=== PATIENT | male | born 1970 | race African-American/Black ===

== ENCOUNTER 2020-08-20 16:28 | Inpatient (IN) | payer MEDICARE, MEDICAID ==
[~2020-08-20] VITALS: Ht 182.9 cm; Wt 104.5 kg
[2020-08-20] MEDS ORDERED: NS 1,000 ML IV ONE (16:45)
[2020-08-20] MEDS ORDERED: ATOR80TA59 PO (16:57)
[2020-08-20] MEDS ORDERED: LANTINJ4 SC (16:57)
[2020-08-20] MEDS ORDERED: COMBAER6 INH (16:57)
[2020-08-20] MEDS ORDERED: ASPI81CH33 PO (16:57)
[2020-08-20] MEDS ORDERED: AMLO1TAB25 PO (16:57)
[2020-08-20 17:18] LABS: BASO # 0.1 10^3/uL (0.0-0.2); BASO % 0.7 % (0.0-1.0); EOS # 0.1 10^3/uL (0.0-0.5); EOS % 1.5 % (0.0-3.0); HEMATOCRIT 44.5 % (42.0-52.0); HEMOGLOBIN 14.8 g/dl (13.5-17.5); LYMPH # 4.9 10^3/uL (1.5-5.0); LYMPH % 55.8 % (24.0-44.0); MEAN CORPUSCULAR HEMOGLOBIN 28.2 pg (27.0-33.0); MEAN CORPUSCULAR HGB CONC 33.3 g/dl (32.0-36.5); MEAN CORPUSCULAR VOLUME 84.9 fl (80.0-96.0); MONO # 0.6 10^3/uL (0.0-0.8); NEUTROPHILS # 3.1 10^3/uL (1.5-8.5); NEUTROPHILS % 34.8 % (36.0-66.0); PLATELET COUNT, AUTOMATED 261 10^3/uL (150-450); RED BLOOD COUNT 5.24 10^6/uL (4.30-6.10); WHITE BLOOD COUNT 8.8 10^3/uL (4.0-10.0)
[2020-08-20 17:49] LABS: ACETAMINOPHEN LEVEL < 2.0 UG/ML (10.0-30.0); ALBUMIN 3.7 GM/DL (3.2-5.2); ALT/SGPT 27 U/L (12-78); BILIRUBIN,DIRECT 0.2 MG/DL (0.0-0.2); BILIRUBIN,TOTAL 0.8 MG/DL (0.2-1.0); BLOOD UREA NITROGEN 17 MG/DL (7-18); CARBON DIOXIDE LEVEL 24 MEQ/L (21-32); CHLORIDE LEVEL 105 MEQ/L (98-107); CPK CREATINE PHOSPHOKINASE 639 U/L (39-308); CREATININE FOR GFR 1.58 MG/DL (0.70-1.30); ETHYL ALCOHOL (ETHANOL) 0.007 % (0.000-0.010); GLOMERULAR FILTRATION RATE 49.7 (>56); GLUCOSE, FASTING 115 MG/DL (70-100); POTASSIUM SERUM 4.1 MEQ/L (3.5-5.1); SALICYLATE LEVEL 2.7 MG/DL (5.0-30.0); SODIUM LEVEL 138 MEQ/L (136-145); THYROID STIMULATING HORMONE 0.341 uIU/ML (0.358-3.740); TOTAL PROTEIN 7.1 GM/DL (6.4-8.2); TROPONIN I 0.09 NG/ML (< 0.10)
[2020-08-20 18:29] LABS: AMPHETAMINES LEVEL URINE POSITIVE (NEGATIVE); BARBITURATES URINE NEGATIVE (NEGATIVE); BENZODIAZEPINES URINE NEGATIVE (NEGATIVE); CANNABINOIDS URINE NEGATIVE (NEGATIVE); COCAINE METABOLITE URINE POSITIVE (NEGATIVE); METHADONE URINE NEGATIVE (NEGATIVE); OPIATES URINE NEGATIVE (NEGATIVE); PHENCYCLIDINE URINE NEGATIVE (NEGATIVE)
[2020-08-20] MEDS ORDERED: MOM 30ML SUSPENSION UDC PO PRN (19:45)
[2020-08-20] MEDS ORDERED: MAALOX 30 ML SUSP *UDC PO PRN (19:45)
--- OUTSIDE RECORDS SUMMARY | 2020-08-20 19:59 | CCD ---
Author Author [facility] Address Unknown Phone Unavailable Support Name Relationship Address Phone UE Next Of Kin Unknown Unavailable Re-disclosure Warning The records that you are about to access may contain information from federally-assisted alcohol or drug abuse programs. If such information is present, then the following federally mandated warning applies: This information has been disclosed to you from records protected by federal confidentiality rules (42 CFR part 2). The federal rules prohibit you from making any further disclosure of this information unless further disclosure is expressly permitted by the written consent of the person to whom it pertains or as otherwise permitted by 42 CFR part 2. A general authorization for the release of medical or other information is NOT sufficient for this purpose. The Federal rules restrict any use of the information to criminally investigate or prosecute any alcohol or drug abuse patient.The records that you are about to access may contain highly sensitive health information, the redisclosure of which is protected by Article 27-F of the [facility] Public Health law. If you continue you may have access to information: Regarding HIV / AIDS; Provided by facilities licensed or operated by the [facility] Office of Mental Health; or Provided by the [facility] Office for People With Developmental Disabilities. If such information is present, then the following [facility] mandated warning applies: This information has been disclosed to you from confidential records which are protected by state law. State law prohibits you from making any further disclosure of this information without the specific written consent of the person to whom it pertains, or as otherwise permitted by law. Any unauthorized further disclosure in violation of state law may result in a fine or nursing home sentence or both. A general authorization for the release of medical or other information is NOT sufficient authorization for further disc losure. Insurance Providers Payer name Policy type / Coverage type Policy ID Covered libertarian ID Covered libertarian's relationship to franz Policy Franz Plan Information [facility] [id number]
[2020-08-21] MEDS: ACETAMINOPHEN TAB 650MG DOSE (2X325MG) PO PRN ×2 (01:57→21:05)
[2020-08-21] MEDS: traZODone 50 MG TAB PO PRN (02:00)
[2020-08-21 06:56] VITALS: BP_SYST 176; BP_SYST 186; BP_DIAS 84
[2020-08-21] MEDS ORDERED: OMEGCAP4 PO (09:54)
[2020-08-21] MEDS ORDERED: SYMB16INH INH (09:54)
[2020-08-21] MEDS ORDERED: D31000TA2 PO (09:54)
[2020-08-21] MEDS ORDERED: COMMENTS (09:55)
--- NOTE | 2020-08-21 09:58 | MHHPEPDOC ---
General Date Of Admission: Aug 21, 2020 Legal Status: 9.39 Chief Complaint "Hearing voices, suicidal thoughts, alcohol and drugs " History of Present Illness HISTORY OF THE PRESENT ILLNESS: Patient is a 49 -year-old , male, who states he is hearing voices, having suicidal thoughts using alcohol and drugs. He states he has been having these symptoms for 4-5 days. He rents a room, which is part of an apartment and has been in [place] for approximately 3 weeks. He has no psychiatric history here because he has never been in [place] and as mentioned, he has been in [place], 2-3 weeks prior to that he was in [place] and states she had no psychiatric care there. He does recall that he has had psychiatric care at some point, but he has no memory of his last visit. He has had several hospitalizations. He does not recall when the last one was. He was born in [place], and states unfortunately, "unfortunately he has family there." He has a grandmother and cousins in [place]. 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 He states pr esently "there is no person in the world requiring my presence and no place for me to be." He has been and twice and he has 2 children from his first , but he doesn't know where they are. He has no present legal difficulties but has previously been arrested for disorderly conduct. His alcohol use has been in and he states that some first time he's been drinking in 30 years, but he has also used methamphetamines and crack. He states this is his first time using methamphetamine, but he is been using crack off and on since 1995. He states he is hearing voices modeled though they are, and numbering 3. He states they are talking and berating him. He states he has been depressed since Sunday of this week. He states he is made over 15 suicide attempts using different methods of overdose and insulin. He is self educated but also has an associates degree. He states he has been treated for depression using Zoloft and Depakote did not like the Depakote because he stopped the elevated moods. He states he has never had manic episodes or over elevated moods. He states he is not presently paranoid, but he is having auditory hallucinations and suicidal ideas. He is fully oriented. He has had difficulty sleeping. His appetite is good. Psychiatric Review of Systems Depression (2 or more weeks): depressed mood, insomnia/hypersomnia, feelings of worthlesness, suicidal thoughts Farzana (4 or more days of): denies Psychosis: auditory hallucination PTSD: denies Anxiety: denies Past Psychiatric History Previous Psychiatric Diagnosis: He does not have a documented diagnosis and does not recall treatment except for use of Zoloft and Depakote. Previous Psychiatric Admissions:. He has had psychiatric admissions but does not recall the last one. Suicide Attempts:. He states he is made over 15 suicide attempts. Psychiatric Follow-up:. He does not recall or discuss any psychiatric follow-up. Psychiatric medications:. In the past. He recalls Zoloft and Depakote. Past Medical History Medical Problems He describes no medical problems Head Injury: No Seizures: No Hospitalizations: Yes Surgeries: No Family Medical/Psychiatric HX Psychiatric Disorders: Yes Addiction: Yes Suicide Attemps/Completions: Yes Addiction History alcohol, cocaine, methamphetamines Social History Childhood: Abuse/Trauma:. Current Living Situation: Presently living in an apartment in [place]. Education: Associates degree. Employment:. Numerous businesses. Social Support: None noted. Legal:. History of disorderly conduct. Marital:. 2 marriages with 2 children from first marriage. Mental Status Examination General Appearance: well groomed Build: average Demeanor: average Eye Contact: avoidant Activity: average Behavior: cooperative Speech: clear Mood: euthymic Mood Sad Affect: flat Thought Process: logical/linear Thought Content (Delusions): none reported Thought Content (Aggressive): none reported Perception (Hallucinations): auditory Perception (Other): none reported Cognition (Impairment of): none reported Cognition(Intelligence Est.): above average Oriented: Oriented times three Insight: good Judgment: Poor Psychosis: Denies Diagnoses Major depressive illness, chronic substance abuse A-FIB/CHADSVASC A-FIB History Current/History of A-Fib/PAF?: No Current PO Anticoag Therapy: No Age/Risk Factor Scoring CHADSVASC: CHADSVASC Response (Comments) Value Age Risk Factor Age < 65 years old 0 Total 0 Treatment Treatment ordered: NONE Initial Treatment Plan 1. Patient was admitted on a [9.39] status. 2. Complete history was obtained. 3. With patients permission, family will be contacted and database will be expanded. 4. Patients medication regimen will be reviewed and changed accordingly. 5. Patient will be provided with protected environment. 6. Patient will be treated with individual, group, and milieu therapies. 7. Patient will receive supportive psych-education. 8. Discharge planning will commence immediately. 9. Outpatient follow-up treatment will be strongly recommended. 10. The initial treatment plan will focus initially on: * Depression. * Risk for suicide. ESTIMATED LENGTH OF STAY: - DAYS. TIME SPENT COUNSELING AND COORDINATING INITIAL CARE: minutes. Vital Signs Vital Signs Date Time Temp Pulse Resp B/P (MAP) Pulse Ox O2 Delivery O2 Flow Rate FiO2 08/21/20 06:56 97.2 88 18 186/84 (118) 96 Room Air Laboratory Data 24H Labs Laboratory Tests 2 08/20/20 16:47: Immature Granulocyte % (Auto) 0.2, Neutrophils (%) (Auto) 34.8L, Lymphocytes (%) (Auto) 55.8H, Monocytes (%) (Auto) 7.0, Eosinophils (%) (Auto) 1.5, Basophils (%) (Auto) 0.7, Neutrophils # (Auto) 3.1, Lymphocytes # (Auto) 4.9, Monocytes # (Auto) 0.6, Eosinophils # (Auto) 0.1, Basophils # (Auto) 0.1, Nucleated Red Blood Cells % (auto) 0.0, Anion Gap 9, Glomerular Filtration Rate 49.7L, Calcium Level 9.0, Total Bilirubin 0.8, Direct Bilirubin 0.2, Aspartate Amino Transf (AST/SGOT) 20, Alanine Aminotransferase (ALT/SGPT) 27, Alkaline Phosphatase 80, Total Creatine Kinase 639H, Troponin I 0.09, Total Protein 7.1, Albumin 3.7, Albumin/Globulin Ratio 1.1, Thyroid Stimulating Hormone (TSH) 0.341L, Sali cylates Level 2.7L, Urine Opiates Screen NEGATIVE, Urine Methadone Screen NEGATIVE, Acetaminophen Level < 2.0L, Urine Barbiturates Screen NEGATIVE, Urine Phencyclidine Screen NEGATIVE, Urine Amphetamines Screen POSITIVEH, Urine Benzodiazepines Screen NEGATIVE, Urine Cocaine Metabolite Screen POSITIVEH, Urine Cannabinoids Screen NEGATIVE, Ethyl Alcohol Level 0.007 CBC/BMP Laboratory Tests 08/20/20 16:47 Medications Scheduled Amlodipine Besylate (Amlodipine Besylate) 10 Mg Tablet, 10 MG PO DAILY, (Reported) Aspirin (Aspirin) 81 Mg Tab.chew, 81 MG PO DAILY for pain, (Reported) Atorvastatin Calcium (Atorvastatin Calcium) 80 Mg Tablet, 80 MG PO DAILY, (Reported) Insulin Glargine,Hum.rec.anlog (Lantus Solostar) 100 Unit/1 Ml Insuln.pen, 10 UNIT SC QPM, (Reported) Ipratropium/Albuterol Sulfate (Combivent Respimat 20-100 Mcg) 4 Gm Mist.inhal, 2 PUFF INH TID, (Reported) Allergies Coded Allergies: lisinopril (Verified Allergy, Unknown, Tongue swelling, 08/20/20) prochlorperazine (Verified Allergy, Unknown, tongue swelling, 08/20/20) BRENDA LIRA MD Aug 21, 2020 09:58
[2020-08-21] MEDS ORDERED: COMBIVENT RESPIMAT 100-20MCG INHALER 4GM INH PRN (14:15)
[2020-08-21] MEDS ORDERED: GLUCOSE 4GM CHEW TABLET PO PRN (14:15)
[2020-08-21] MEDS ORDERED: DEXTROSE 50% 50 ML SYRINGE IV PRN (14:15)
[2020-08-21] MEDS ORDERED: GLUCAGON INJ 1MG VIAL SC PRN (14:15)
--- NOTE | 2020-08-21 14:18 | HPEPDOC ---
General Date of Admission Aug 20, 2020 at 19:34 Date of Service: Aug 21, 2020 Chief Complaint The patient is a 49-year-old male admitted with a reason for visit of Schizophrenia. Source: Patient Exam Limitations: No limitations History of Present Illness Pt is 49 yo M with PMH of type 2 diabetes, Anxiety, Depression, chronic kidney diseases, hypertension, hyperlipidemia presented to the hospital with hearing voices, having suicidal thoughts using alcohol and drugs. He states he has been having these symptoms for 4-5 days. Patient denies fever, chills, nausea, chest pain, shortness of breath, diarrhea or dysuria Home Medications Scheduled Amlodipine Besylate (Amlodipine Besylate) 10 Mg Tablet, 5 MG PO DAILY for ., (Reported) Aspirin (Aspirin) 81 Mg Tab.chew, 81 MG PO DAILY for ., (Reported) Atorvastatin Calcium (Atorvastatin Calcium) 80 Mg Tablet, 80 MG PO DAILY for ., (Reported) Budesonide/Formoterol (Symbicort 160-4.5 Mcg Inhaler) 6 Gm Hfa.aer.ad, 2 PUFF INH BID for ., (Reported) Cholecalciferol (Vitamin D3) (Vitamin D3) 1,000 Unit Tablet, 1,000 UNITS PO DAILY for ., (Reported) Insulin Glargine,Hum.rec.anlog (Lantus Solostar) 100 Unit/1 Ml Insuln.pen, 20 UNIT SC QPM for ., (Reported) Kelso-3/Dha/Epa/Fish Oil (Kelso-3 Fish Oil 1,000 mg Sfgl) 1,000 Mg Capsule, 2,000 MG PO BID for ., (Reported) Scheduled PRN Ipratropium/Albuterol Sulfate (Combivent Respimat 20-100 Mcg) 4 Gm Mist.inhal, 1 PUFF INH QID PRN for SHORTNESS OF BREATH, (Reported) Miscellaneous Medications [Comments] , for ., (Reported) MED LIST PROVIDED BY [facility] Allergies Coded Allergies: lisinopril (Verified Allergy, Unknown, Tongue swelling, 08/20/20) prochlorperazine (Verified Allergy, Unknown, tongue swelling, 08/20/20) Past Medical History Medical History type 2 diabetes, Anxiety, Depression, chronic kidney diseases, hypertension, hyperlipidemia, COPD, Nephrotic syndrome Family History Mother from colon cancer and uterine cancer Social History * Smoker: current smoker Alcohol: heavy Drugs: IV drug use A-FIB/CHADSVASC A-FIB History Current/History of A-Fib/PAF?: No Current PO Anticoag Therapy: No Review of Systems Constitutional: Denies: Chills Eyes: Denies: Pain ENT: Denies: Head Aches Skin: Denies: Rash Pulmonary: Denies: Dyspnea Cardiovascular: Denies: Chest Pain, Palpitations Gastrointestinal: Denies: Nausea Genitourinary: Denies: Dysuria Hematologic: Denies: Bruising Endocrine: Denies: Polydipsia, Polyphagia Musculoskeletal: Denies: Neck Pain Neurological: Denies: Weakness Psych: Reports: Anxiety, Depression Physical Examination General Exam: Positive: Alert, Cooperative Eye Exam: Positive: PERRLA ENT Exam: Positive: Atraumatic Neck Exam: Positive: Supple; Negative: JVD Chest Exam: Positive: Clear to auscultation Heart Exam: Positive: Rate Normal Telemetry: Positive: No significant arrhythmia Abdomen Exam: Positive: Normal bowel sounds Extremity Exam: Negative: Clubbing, Cyanosis Skin Exam: Positive: Nl turgor and temperature Neuro Exam: Positive: Strength at 5/5 X4 ext Psych Exam: Positive: Anxiety Vital Signs Vital Signs Date Time Temp Pulse Resp B/P (MAP) Pulse Ox O2 Delivery O2 Flow Rate FiO2 08/21/20 06:56 97.2 88 18 186/84 (118) 96 Room Air Laboratory Data Labs 24H Laboratory Tests 2 08/20/20 16:47: Immature Granulocyte % (Auto) 0.2, Neutrophils (%) (Auto) 34.8L, Lymphocytes (%) (Auto) 55.8H, Monocytes (%) (Auto) 7.0, Eosinophils (%) (Auto) 1.5, Basophils (%) (Auto) 0.7, Neutrophils # (Auto) 3.1, Lymphocytes # (Auto) 4.9, Monocytes # (Auto) 0.6, Eosinophils # (Auto) 0.1, Basophils # (Auto) 0.1, Nucleated Red Blood Cells % (auto) 0.0, Anion Gap 9, Glomerular Filtration Rate 49.7L, Calcium Level 9.0, Total Bilirubin 0.8, Direct Bilirubin 0.2, Aspartate Amino Transf (AST/SGOT) 20, Alanine Aminotransferase (ALT/SGPT) 27, Alkaline Phosphatase 80, Total Creatine Kinase 639H, Troponin I 0.09, Total Protein 7.1, Albumin 3.7, Albumin/Globulin Ratio 1.1, Thyroid Stimulating Hormone (TSH) 0.341L, Salicylate s Level 2.7L, Urine Opiates Screen NEGATIVE, Urine Methadone Screen NEGATIVE, Acetaminophen Level < 2.0L, Urine Barbiturates Screen NEGATIVE, Urine Phencyclidine Screen NEGATIVE, Urine Amphetamines Screen POSITIVEH, Urine Benzodiazepines Screen NEGATIVE, Urine Cocaine Metabolite Screen POSITIVEH, Ur ine Cannabinoids Screen NEGATIVE, Ethyl Alcohol Level 0.007 CBC/BMP Laboratory Tests 08/20/20 16:47 Microbiology Microbiology 08/20/20 Respiratory Virus Panel (PCR) (SALOMON) - Final, Complete Assessment/Plan Pt is 49 yo M with PMH of type 2 diabetes, Anxiety, Depression, chronic kidney diseases, hypertension, hyperlipidemia presented to the hospital with hearing voices, having suicidal thoughts using alcohol and drugs. He states he has been having these symptoms for 4-5 days. Patient denies fever, chills, nausea, chest pain, shortness of breath, diarrhea or dysuria Problems (1) Schizophrenia Status: Acute Problem Text: defer treatment to psych team (2) Diabetes mellitus Status: Chronic Problem Text: Insulin sliding scale Detemir twice a day Diabetes diet (3) Hyperlipidemia Status: Chronic Problem Text: Continue statin (4) Hypertension Status: Chronic Problem Text: I added lisinopril to his regimen Patient has diabetes and he will benefit from ARB inhibitors (5) COPD (chronic obstructive pulmonary disease) Status: Chronic Problem Text: Not in acute exacerbation Continue inhalers Plan / VTE VTE Prophylaxis Ordered?: No VTE Exclusion Mechanical Proph: Low Risk for VTE KD DEL CID DO Aug 21, 2020 14:17
[2020-08-21] MEDS: ATORVASTATIN 20 MG TAB PO SCH (14:48)
[2020-08-21] MEDS: VITAMIN D 1,000 INTERNATIONAL UNITS TABLET PO SCH (14:48)
[2020-08-21] MEDS: amLODIPine 5 MG TAB PO SCH (14:48)
[2020-08-21] MEDS: ASPIRIN 81 MG CHEW TABLET PO SCH (14:49)
[2020-08-21] MEDS: hydrOXYzine 50 MG TAB PO SCH ×2 (15:27→21:01)
[2020-08-21] MEDS: LOSARTAN 25 MG TAB PO SCH (15:58)
[2020-08-21 16:15] VITALS: BP 140/88
[2020-08-21] MEDS: HumaLOG INSULIN (NovoLOG) PER UNIT SC SCH ×2 (17:08→21:00)
--- NOTE | 2020-08-21 20:46 | ECGEPIP ---
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
[2020-08-21] MEDS: SYMBICORT 160/4.5MCG INHALER 6GM INH SCH (21:00)
[2020-08-21] MEDS: LEVEMIR (INSULIN DETEMIR) 1 UNITS/0.01ML SC SCH (21:01)
[2020-08-22 06:28] VITALS: BP 148/98
[2020-08-22] MEDS: HumaLOG INSULIN (NovoLOG) PER UNIT SC SCH ×4 (07:03→20:58)
[2020-08-22] MEDS ORDERED: OLANZapine 2.5MG TABLET PO SCH (09:00)
[2020-08-22] MEDS: ASPIRIN 81 MG CHEW TABLET PO SCH (09:24)
[2020-08-22] MEDS: SYMBICORT 160/4.5MCG INHALER 6GM INH SCH ×2 (09:26→20:50)
[2020-08-22] MEDS: LEVEMIR (INSULIN DETEMIR) 1 UNITS/0.01ML SC SCH ×2 (09:27→20:50)
[2020-08-22] MEDS: LOSARTAN 25 MG TAB PO SCH (09:28)
[2020-08-22] MEDS: ATORVASTATIN 20 MG TAB PO SCH (09:28)
[2020-08-22] MEDS: hydrOXYzine 50 MG TAB PO SCH ×3 (09:28→20:50)
[2020-08-22] MEDS: VITAMIN D 1,000 INTERNATIONAL UNITS TABLET PO SCH (09:28)
[2020-08-22] MEDS: amLODIPine 5 MG TAB PO SCH (09:29)
--- NOTE | 2020-08-22 15:18 | MHIPNPDOC ---
[facility] Progress Note Progress Note DATE OF SERVICE: 08/22/20 HISTORY: 49-year-old male initially did not want to be seen today, but now complains of hearing voices and requests medication. VITAL SIGNS: See below. NEW TEST RESULTS: None. CURRENT MEDICATIONS: See below. MENTAL STATUS EXAMINATION: Patient is a 49-year old male, who is, complaining of auditory hallucinations. Speech: Is, normal. Language skills are. Normal. Thought processes including: Persecutory with auditory hallucinations. Thought content: As above. Abstract reasoning, and computation: Able to abstract. Description of associations:. No looseness associations. Description of abnormal or psychotic thoughts:, Hearing voices and persecutory thoughts. Judgment: Fair. Insight: Fair. Orientation: 3. Recent and remote memory: Intact. Attention span and concentration: Intact. Language: Normal. Fund of knowledge: Full. Mood: Anxious. Affect:, Congruent. DIAGNOSES: 1. 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 2. None. 3.. None. ASSESSMENT: As above MANAGEMENT PLAN:, We'll begin on low dose Zyprexa. TIME SPENT: 30 minutes. Vital Signs Vital Signs Date Time Temp Pulse Resp B/P (MAP) Pulse Ox O2 Delivery O2 Flow Rate FiO2 08/22/20 09:29 87 08/22/20 09:28 142/96 08/22/20 06:28 97.5 18 98 Room Air Laboratory Data 24H Labs Laboratory Tests 2 08/21/20 17:06: Bedside Glucose (Misc Panel) 131H 08/21/20 21:00: Bedside Glucose (Misc Panel) 155H 08/22/20 06:27: Bedside Glucose (Misc Panel) 149H 08/22/20 11:51: Bedside Glucose (Misc Panel) 199H Current Medications Current Medications Medications (Trade) Dose Ordered Sig/Dimitry Route PRN Reason Start Time Stop Time Status Last Admin Dose Admin Acetaminophen (Tylenol Tab) 650 mg Q6HP PRN PO HEADACHE or DISCOMFORT 08/20/20 19:45 08/21/20 21:05 Al Hydrox/Mg Hydrox/Simethicone (Mylanta) 30 ml Q4HP PRN PO HEARTBURN/INDIGESTION 08/20/20 19:45 Albuterol/ Ipratropium (Combivent Respimat 100-20mcg) 1 puff QID PRN INH SHORTNESS OF BREATH 08/21/20 14:15 08/22/20 01:23 Amlodipine Besylate (Norvasc) 5 mg DAILY PO 08/21/20 09:00 08/22/20 09:29 Aspirin (Aspirin Chewable) 81 mg DAILY PO 08/21/20 09:00 08/22/20 09:24 Atorvastatin Calcium (Lipitor) 80 mg DAILY PO 08/21/20 09:00 08/22/20 09:28 Budesonide/ Formoterol Fumarate (Symbicort 160/ 4.5mcg) 2 puff BID INH 08/21/20 21:00 08/22/20 09:26 Dextrose (Dextrose 50%) 25 ml ASDIRECTED PRN IV SEE LABEL COMMENTS 08/21/20 14:15 Glucagon (Glucagon) 1 mg ASDIRECTED PRN SC SEE LABEL COMMENTS 08/21/20 14:15 Glucose (Glucose) 16 GM ASDIRECTED PRN PO SEE LABEL COMMENTS 08/21/20 14:15 Home Med (Med Rec Complete!) ASDIRECTED XX 08/21/20 10:00 08/21/20 10:12 DC Hydroxyzine HCl (Atarax) 50 mg TID PO 08/21/20 16:00 08/22/20 09:28 Insulin Detemir (Levemir Insulin) 10 units BID SC 08/21/20 21:00 08/22/20 09:27 Insulin Human Lispro (HumaLOG INSULIN) SEE PROTOCOL TABLE AC SC 08/21/20 17:30 08/22/20 07:03 Insulin Human Lispro (HumaLOG INSULIN) SEE PROTOCOL TABLE QHS SC 08/21/20 21:00 Lisinopril (Prinivil) 20 mg DAILY PO 08/22/20 09:00 08/21/20 14:25 DC Losartan Potassium (Cozaar) 25 mg DAILY PO 08/21/20 09:00 08/22/20 09:28 Magnesium Hydroxide (Milk Of Magnesia) 30 ml DAILYPRN PRN PO CONSTIPATION 08/20/20 19:45 Trazodone HCl (Desyrel) 50 mg QHSP PRN PO INSOMNIA 08/20/20 19:45 08/21/20 02:00 Vitamin D (Vitamin D) 1,000 units DAILY PO 08/21/20 09:00 08/22/20 09:28 Allergies Coded Allergies: lisinopril (Verified Allergy, Unknown, Tongue swelling, 08/20/20) prochlorperazine (Verified Allergy, Unknown, tongue swelling, 08/20/20) BRENDA LIRA MD Aug 22, 2020 15:18
[2020-08-22 16:21] VITALS: BP 121/65
[2020-08-22] MEDS: traZODone 50 MG TAB PO PRN (20:50)
[2020-08-23 07:14] VITALS: BP 127/77
[2020-08-23] MEDS: HumaLOG INSULIN (NovoLOG) PER UNIT SC SCH ×4 (07:30→20:42)
[2020-08-23] MEDS: OLANZapine 5 MG TAB PO SCH ×2 (09:00→21:00)
[2020-08-23] MEDS: SYMBICORT 160/4.5MCG INHALER 6GM INH SCH ×2 (09:56→19:54)
[2020-08-23] MEDS: LOSARTAN 25 MG TAB PO SCH (09:57)
[2020-08-23] MEDS: ATORVASTATIN 20 MG TAB PO SCH (09:57)
[2020-08-23 09:58] VITALS: BP 127/77
[2020-08-23] MEDS: ASPIRIN 81 MG CHEW TABLET PO SCH (09:58)
[2020-08-23] MEDS: VITAMIN D 1,000 INTERNATIONAL UNITS TABLET PO SCH (09:58)
[2020-08-23] MEDS: amLODIPine 5 MG TAB PO SCH (09:58)
[2020-08-23] MEDS: hydrOXYzine 50 MG TAB PO SCH ×3 (09:58→19:54)
[2020-08-23] MEDS: LEVEMIR (INSULIN DETEMIR) 1 UNITS/0.01ML SC SCH ×2 (10:01→21:06)
--- NOTE | 2020-08-23 14:54 | MHIPNPDOC ---
[facility] Progress Note Progress Note DATE OF SERVICE: 08/23/20 HISTORY: Patient is a 49 -year-old , male, who states he is hearing voices, having suicidal thoughts using alcohol and drugs. He states he has been having these symptoms for 4-5 days. He rents a room, which is part of an apartment and has been in [place] for approximately 3 weeks. He has no psychiatric history here because he has never been in [place] and as mentioned, he has been in [place], 2-3 weeks prior to that he was in [place] and states she had no psychiatric care there. He does recall that he has had psychiatric care at some point, but he has no memory of his last visit. He has had several hospitalizations. He does not recall when the last one was. He was born in [place], and states unfortunately, "unfortunately he has family there." He has a grandmother and cousins in [place]. 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 He states presently "there is no person in the world requiring my presence and no place for me to be." He has been and twice and he has 2 children from his first , but he doesn't know where they are. He has no present legal difficulties but has previously been arrested for disorderly conduct. His alcohol use has been in and he states that some first time he's been drinking in 30 years, but he has also used methamphetamines and crack. He states this is his first time using methamphetamine, but he is been using crack off and on since 1995. He states he is hearing voices modeled though they are, and numbering 3. He states they are talking and berating him. He states he has been depressed since Sunday of this week. He states he is made over 15 suicide attempts using different methods of overdose and insulin. He is self educated but also has an associates degree. VITAL SIGNS: See below. CURRENT MEDICATIONS: See below. MENTAL STATUS EXAMINATION:Patient is a 49 -year-old , male, who states he is hearing voices, having suicidal thoughts using alcohol and drugs. He states he has been having these symptoms for 4-5 days. He rents a room, which is part of an apartment and has been in [place] for approximately 3 weeks. He has no psychiatric history here because he has never been in [place] and as mentioned, he has been in [place]. Speech: Is normal rate, tone and volume Language skills are intact Thought processes including: linear and goal oriented Thought content: reports depression and suicidal, has some vague planning. Abstract reasoning, and computation: fair Description of associations: reports auditory hallucinations Description of abnormal or psychotic thoughts: appears paranoid, refusing to answer question about how he came to [place], will not clarify Judgment: impaired Insight: Impaired Orientation: alert and oriented to person, place, time and situation Recent and remote memory: intact Attention span and concentration: fair Language: expansive Fund of knowledge: average Mood: Depressed and irritable mood Affect: Flat, strong agitation DIAGNOSES: Major Depressive Disorder, Recurrent, Recurrent, Polysubstance Use Disorder Rule out Bipolar Disorder Rule out Cluster B Personality Traits (Antisocial Personality Disorder) ASSESSMENT: Patient was awaken for the interview. He is alert and oriented, has a depressed mood and affect. He is moderately irritable and agitated with this senior writer when asked what brought him to [place]. He answered "its the luck of the draw." When asked again if he had taken a bus or drove himself to a place where he has never lived he states "do you not understand what luck of the draw means?" When asked to clarify that statement he states "are you trying to get me upset with this question? I answered you. I said "it's the luck of the draw." This senior writer clarified whether he had been riding on a bus, decided to get off the bus and was not really wanting to be in [place] vs wanting a fresh start in a new town. Patient becomes even more agitated and postulates that this senior writer is trying to illicit more from the question to upset him. I offer to the patient that I believe that he is feeling unsafe but only want to clarify his future outpatient needs if whether he is staying in [place] vs he is transient and not planning on staying. Patient is becoming very agitated, becomes aggressive in his posture and I quickly closed the session as he was not engaging and began to become more paranoid in the session. Patient is quite labile in mood during the interview. He appears to have some Cluster B Personality Traits (antisocial traits). 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 He reports no work history. Was quite defensive when this senior writer attempts to piece more of his psychiatric history. He appears to have no goals, no work history, no recollection of his past or avoids answering them. He became very defensive when asked about the circumstances that brought him to a town in which he as never lived. He did report no current relationships. Spoke with Primary RN, Tami who gave additional information in that Patient had reported to her that he had been diagnosed with Malingering in the past. MANAGEMENT PLAN: Continue on medications, increase Zyprexa to 5 mg BID. Patient reported to RN that he feels racy on this medication. patient not stable for discharge TIME SPENT: 25 minutes. Vital Signs Vital Signs Date Time Temp Pulse Resp B/P (MAP) Pulse Ox O2 Delivery O2 Flow Rate FiO2 08/23/20 09:58 79 127/77 08/23/20 07:14 97.6 14 96 Room Air Laboratory Data 24H Labs Laboratory Tests 2 08/22/20 20:54: Bedside Glucose (Misc Panel) 175H 08/23/20 12:01: Bedside Glucose (Misc Panel) 142H Current Medications Current Medications Medications (Trade) Dose Ordered Sig/Dimitry Route PRN Reason Start Time Stop Time Status Last Admin Dose Admin Acetaminophen (Tylenol Tab) 650 mg Q6HP PRN PO HEADACHE or DISCOMFORT 08/20/20 19:45 08/21/20 21:05 Al Hydrox/Mg Hydrox/Simethicone (Mylanta) 30 ml Q4HP PRN PO HEARTBURN/INDIGESTION 08/20/20 19:45 Albuterol/ Ipratropium (Combivent Respimat 100-20mcg) 1 puff QID PRN INH SHORTNESS OF BREATH 08/21/20 14:15 08/22/20 01:23 Amlodipine Besylate (Norvasc) 5 mg DAILY PO 08/21/20 09:00 08/23/20 09:58 Aspirin (Aspirin Chewable) 81 mg DAILY PO 08/21/20 09:00 08/23/20 09:58 Atorvastatin Calcium (Lipitor) 80 mg DAILY PO 08/21/20 09:00 08/23/20 09:57 Budesonide/ Formoterol Fumarate (Symbicort 160/ 4.5mcg) 2 puff BID INH 08/21/20 21:00 08/23/20 09:56 Dextrose (Dextrose 50%) 25 ml ASDIRECTED PRN IV SEE LABEL COMMENTS 08/21/20 14:15 Glucagon (Glucagon) 1 mg ASDIRECTED PRN SC SEE LABEL COMMENTS 08/21/20 14:15 Glucose (Glucose) 16 GM ASDIRECTED PRN PO SEE LABEL COMMENTS 08/21/20 14:15 Home Med (Med Rec Complete!) ASDIRECTED XX 08/21/20 10:00 08/21/20 10:12 DC Hydroxyzine HCl (Atarax) 50 mg TID PO 08/21/20 16:00 08/23/20 09:58 Insulin Detemir (Levemir Insulin) 10 units BID SC 08/21/20 21:00 08/23/20 10:01 Insulin Human Lispro (HumaLOG INSULIN) SEE PROTOCOL TABLE AC SC 08/21/20 17:30 08/22/20 07:03 Insulin Human Lispro (HumaLOG INSULIN) SEE PROTOCOL TABLE QHS SC 08/21/20 21:00 Lisinopril (Prinivil) 20 mg DAILY PO 08/22/20 09:00 08/21/20 14:25 DC Losartan Potassium (Cozaar) 25 mg DAILY PO 08/21/20 09:00 08/23/20 09:57 Magnesium Hydroxide (Milk Of Magnesia) 30 ml DAILYPRN PRN PO CONSTIPATION 08/20/20 19:45 Olanzapine (ZyPREXA) 2.5 mg DAILY PO 08/22/20 09:00 08/23/20 08:53 DC 08/22/20 15:45 Olanzapine (ZyPREXA) 5 mg BID PO 08/23/20 09:00 Trazodone HCl (Desyrel) 50 mg QHSP PRN PO INSOMNIA 08/20/20 19:45 08/22/20 20:50 Vitamin D (Vitamin D) 1,000 units DAILY PO 08/21/20 09:00 08/23/20 09:58 Allergies Coded Allergies: lisinopril (Verified Allergy, Unknown, Tongue swelling, 08/20/20) prochlorperazine (Verified Allergy, Unknown, tongue swelling, 08/20/20) ELOISA SCALES NP Aug 23, 2020 14:53
[2020-08-23] MEDS ORDERED: BENZTROPINE 0.5 MG TAB PO PRN (15:30)
[2020-08-23 18:20] VITALS: BP 148/86
[2020-08-23] MEDS: traZODone 50 MG TAB PO PRN (19:53)
[2020-08-24 06:00] VITALS: BP 155/88
[2020-08-24] MEDS: HumaLOG INSULIN (NovoLOG) PER UNIT SC SCH ×4 (06:55→22:05)
[2020-08-24] MEDS: SYMBICORT 160/4.5MCG INHALER 6GM INH SCH ×2 (09:00→22:04)
[2020-08-24] MEDS: amLODIPine 5 MG TAB PO SCH (09:00)
[2020-08-24] MEDS: ATORVASTATIN 20 MG TAB PO SCH (09:00)
[2020-08-24] MEDS: LEVEMIR (INSULIN DETEMIR) 1 UNITS/0.01ML SC SCH ×2 (09:00→22:09)
[2020-08-24] MEDS: OLANZapine 5 MG TAB PO SCH (09:00)
[2020-08-24] MEDS: ASPIRIN 81 MG CHEW TABLET PO SCH (09:00)
[2020-08-24] MEDS: LOSARTAN 25 MG TAB PO SCH (09:00)
[2020-08-24] MEDS: VITAMIN D 1,000 INTERNATIONAL UNITS TABLET PO SCH (09:00)
[2020-08-24] MEDS: hydrOXYzine 50 MG TAB PO SCH ×3 (09:00→22:04)
--- NOTE | 2020-08-24 13:42 | MHIPNPDOC ---
[facility] Progress Note Progress Note DATE OF SERVICE: 08/24/20 HISTORY: Patient is a 49 -year-old , male, who states he is hearing voices, having suicidal thoughts using alcohol and drugs. He states he has been having these symptoms for 4-5 days. He rents a room, which is part of an apartment and has been in [place] for approximately 3 weeks. He has no psychiatric history here because he has never been in [place] and as mentioned, he has been in [place], 2-3 weeks prior to that he was in [place] and states she had no psychiatric care there. He does recall that he has had psychiatric care at some point, but he has no memory of his last visit. He has had several hospitalizations. He does not recall when the last one was. He was born in [place], and states unfortunately, "unfortunately he has family there." He has a grandmother and cousins in [place]. 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 He states presently "there is no person in the world requiring my presence and no place for me to be." He has been and twice and he has 2 children from his first , but he doesn't know where they are. He has no present legal difficulties but has previously been arrested for disorderly conduct. His alcohol use has been in and he states that some first time he's been drinking in 30 years, but he has also used methamphetamines and crack. He states this is his first time using methamphetamine, but he is been using crack off and on since 1995. He states he is hearing voices modeled though they are, and numbering 3. He states they are talking and berating him. He states he has been depressed since Sunday of this week. He states he is made over 15 suicide attempts using different methods of overdose and insulin. He is self educated but also has an associates degree. VITAL SIGNS: See below. CURRENT MEDICATIONS: See below. MENTAL STATUS EXAMINATION:Patient is a 49 -year-old , male, who states he is hearing voices, having suicidal thoughts using alcohol and drugs. He states he has been having these symptoms for 4-5 days. H Speech: Is normal rate, tone and volume Language skills are intact Thought processes including: linear and goal oriented Thought content: reports depression and suicidal, has some vague planning. Abstract reasoning, and computation: fair Description of associations: reports auditory hallucinations that are berating and derogatory Description of abnormal or psychotic thoughts: Judgment: Fair Insight: Fair Orientation: alert and oriented to person, place, time and situation Recent and remote memory: intact Attention span and concentration: fair Language: expansive Fund of knowledge: average Mood: Depressed Affect: Flat DIAGNOSES: Major Depressive Disorder, Recurrent, Recurrent, Polysubstance Use Disorder Rule out Bipolar Disorder Rule out Cluster B Personality Traits (Antisocial Personality Disorder) ASSESSMENT: Patient was brought to interview by RN. Asked patient about his past hospitalizations. He reports being [facility] to [facility] in [place], [place], [facility], [facility], and [facility]. He reports over 15 hospitalization mainly for depressive symptoms. States that he was in both the [employer] and [employer] and was honorably discharged after 2 years of service. 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 In today's session he reports that he has derogatory hallucinations - telling him that he is "nothing, useless, can't do things, worthless" Reports depression since probably high school. Reports that he had a seizure in 7th grade and subsequently was seeing a counselor after that. He states today that he works faster than most people do, feels that he may be Bipolar but that the people he has worked with did inferior work and they were underachievers. He had reported that he is unsure whether he was energized more than other people because he sees others not working as hard. Reports that Depakote took away his highs. Patient is agreeable to Lamictal, requests discontinuation of Trazodone, reports good sleep on Seroquel and I am titrating patient off Zyprexa. TIME SPENT: 25 minutes. Vital Signs Vital Signs Date Time Temp Pulse Resp B/P (MAP) Pulse Ox O2 Delivery O2 Flow Rate FiO2 08/24/20 06:00 97.7 77 16 155/88 (110) 08/23/20 07:14 96 Room Air Laboratory Data 24H Labs Laboratory Tests 2 08/23/20 17:24: Bedside Glucose (Misc Panel) 169H 08/23/20 19:49: Bedside Glucose (Misc Panel) 128H 08/24/20 06:51: Bedside Glucose (Misc Panel) 214H 08/24/20 11:34: Bedside Glucose (Misc Panel) 136H Current Medications Current Medications Medications (Trade) Dose Ordered Sig/Dimitry Route PRN Reason Start Time Stop Time Status Last Admin Dose Admin Acetaminophen (Tylenol Tab) 650 mg Q6HP PRN PO HEADACHE or DISCOMFORT 08/20/20 19:45 08/21/20 21:05 Al Hydrox/Mg Hydrox/Simethicone (Mylanta) 30 ml Q4HP PRN PO HEARTBURN/INDIGESTION 08/20/20 19:45 Albuterol/ Ipratropium (Combivent Respimat 100-20mcg) 1 puff QID PRN INH SHORTNESS OF BREATH 08/21/20 14:15 08/22/20 01:23 Amlodipine Besylate (Norvasc) 5 mg DAILY PO 08/21/20 09:00 08/23/20 09:58 Aspirin (Aspirin Chewable) 81 mg DAILY PO 08/21/20 09:00 08/23/20 09:58 Atorvastatin Calcium (Lipitor) 80 mg DAILY PO 08/21/20 09:00 08/23/20 09:57 Benztropine Mesylate (Cogentin) 0.5 mg BIDP PRN PO EPS 08/23/20 15:30 Budesonide/ Formoterol Fumarate (Symbicort 160/ 4.5mcg) 2 puff BID INH 08/21/20 21:00 08/23/20 19:54 Dextrose (Dextrose 50%) 25 ml ASDIRECTED PRN IV SEE LABEL COMMENTS 08/21/20 14:15 Glucagon (Glucagon) 1 mg ASDIRECTED PRN SC SEE LABEL COMMENTS 08/21/20 14:15 Glucose (Glucose) 16 GM ASDIRECTED PRN PO SEE LABEL COMMENTS 08/21/20 14:15 Home Med (Med Rec Complete!) ASDIRECTED XX 08/21/20 10:00 08/21/20 10:12 DC Hydroxyzine HCl (Atarax) 50 mg TID PO 08/21/20 16:00 08/23/20 19:54 Insulin Detemir (Levemir Insulin) 10 units BID SC 08/21/20 21:00 08/23/20 21:06 Insulin Human Lispro (HumaLOG INSULIN) SEE PROTOCOL TABLE AC SC 08/21/20 17:30 08/24/20 06:55 Insulin Human Lispro (HumaLOG INSULIN) SEE PROTOCOL TABLE QHS SC 08/21/20 21:00 Lisinopril (Prinivil) 20 mg DAILY PO 08/22/20 09:00 08/21/20 14:25 DC Losartan Potassium (Cozaar) 25 mg DAILY PO 08/21/20 09:00 08/23/20 09:57 Magnesium Hydroxide (Milk Of Magnesia) 30 ml DAILYPRN PRN PO CONSTIPATION 08/20/20 19:45 Olanzapine (ZyPREXA) 2.5 mg DAILY PO 08/22/20 09:00 08/23/20 08:53 DC 08/22/20 15:45 Olanzapine (ZyPREXA) 5 mg BID PO 08/23/20 09:00 Trazodone HCl (Desyrel) 50 mg QHSP PRN PO INSOMNIA 08/20/20 19:45 08/23/20 19:53 Vitamin D (Vitamin D) 1,000 units DAILY PO 08/21/20 09:00 08/23/20 09:58 Allergies Coded Allergies: lisinopril (Verified Allergy, Unknown, Tongue swelling, 08/20/20) prochlorperazine (Verified Allergy, Unknown, tongue swelling, 08/20/20) ELOISA SCALES NP Aug 24, 2020 13:42
[2020-08-24] MEDS ORDERED: LORazepam 2 MG TAB PO ONE ×2 (17:00→17:15)
[2020-08-24] MEDS ORDERED: diphenhydrAMINE 50MG CAP PO ONE ×2 (17:00→17:15)
[2020-08-24] MEDS ORDERED: haloperidoL 5 MG TAB PO ONE ×2 (17:00→17:15)
[2020-08-24 18:57] VITALS: BP 159/90
[2020-08-24] MEDS ORDERED: LORazepam 2 MG/ML VIAL IM STA (20:01)
[2020-08-24] MEDS ORDERED: diphenhydrAMINE 50MG/ML VIAL (J1200) IM STA (20:01)
[2020-08-24] MEDS ORDERED: HALOPERIDOL 5MG/ML VIAL (J1630 PER 1) IM STA (20:01)
[2020-08-24] MEDS ORDERED: QUEtiapine FUMARATE 100 MG TAB PO SCH (21:00)
[2020-08-24] MEDS ORDERED: OLANZapine 5 MG TAB PO SCH (21:00)
[2020-08-24 21:30] VITALS: BP 159/96
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
[2020-08-24] MEDS ORDERED: LIDOCAINE 5% (LIDODERM) PATCH TD SCH (22:45)
[2020-08-25 06:00] VITALS: BP 128/88
[2020-08-25] MEDS: HumaLOG INSULIN (NovoLOG) PER UNIT SC SCH ×2 (07:30→11:54)
[2020-08-25] MEDS: ATORVASTATIN 20 MG TAB PO SCH (09:00)
[2020-08-25] MEDS: LOSARTAN 25 MG TAB PO SCH (09:00)
[2020-08-25] MEDS: ASPIRIN 81 MG CHEW TABLET PO SCH (09:00)
[2020-08-25] MEDS: amLODIPine 5 MG TAB PO SCH (09:00)
[2020-08-25] MEDS: hydrOXYzine 50 MG TAB PO SCH (09:00)
[2020-08-25] MEDS: SYMBICORT 160/4.5MCG INHALER 6GM INH SCH (09:00)
[2020-08-25] MEDS: VITAMIN D 1,000 INTERNATIONAL UNITS TABLET PO SCH (09:00)
[2020-08-25] MEDS ORDERED: lamoTRIgine 25MG TAB PO SCH (09:00)
[2020-08-25] MEDS ORDERED: **NOTE PATIENT COMMENT** MISC XX SCH (09:00)
[2020-08-25] MEDS: LEVEMIR (INSULIN DETEMIR) 1 UNITS/0.01ML SC SCH (09:00)
[2020-08-25] MEDS ORDERED: LIDO5TD TD (11:56)
[2020-08-25] MEDS ORDERED: BENZ0.5T23 PO (11:56)
[2020-08-25] MEDS ORDERED: COZA1TAB PO (11:56)
[2020-08-25] MEDS ORDERED: LAMO25TA4 PO (11:56)
[2020-08-25] MEDS ORDERED: QUET150T2 PO (11:56)
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
== END 2020-08-25 14:01 | disposition home or self-care (01) | DRG 885 ==
LOC: M ED 16:28 → M ED INP 19:34 → M PSY 08-21 00:50
PROVIDERS: ADMIT Psychiatry & Neurology Child & Adolescent Psychiatry; ATTEND Psychiatry & Neurology Psychiatry
DX: F31.9 Bipolar disorder, unspecified (principal); R45.851 Suicidal ideations; F60.2 Antisocial personality disorder; Z79.899 Other long term (current) drug therapy; Z79.82 Long term (current) use of aspirin; Z88.8 Allergy status to other drugs, medicaments and biological substances; I10 Essential (primary) hypertension; E78.5 Hyperlipidemia, unspecified; E11.9 Type 2 diabetes mellitus without complications; F41.9 Anxiety disorder, unspecified; J44.9 Chronic obstructive pulmonary disease, unspecified

== ENCOUNTER 2021-09-12 16:20 | Observation (INO) | payer OTHER ==
[~2021-09-12] VITALS: Ht 182.9 cm; Wt 113.8 kg
[~2021-09-12 16:20] MED LIST: AMLO1TAB25 PO; ASPI81CH33 PO; ATOR80TA59 PO; BENZ0.5T23 PO; COMBAER6 INH; COMMENTS; COZA1TAB PO; LAMO25TA4 PO; LANTINJ4 SC; LIDO5TD TD; OMEGCAP4 PO; QUET150T2 PO; SYMB16INH INH; VITA100093 PO
[2021-09-12] MEDS ORDERED: SPIR12.9 (16:33)
[2021-09-12 20:00] VITALS: O2SAT 96
[2021-09-12 20:16] LABS: HEMATOCRIT 39.6 % (42.0-52.0); HEMOGLOBIN 12.6 g/dl (13.5-17.5); MEAN CORPUSCULAR HEMOGLOBIN 26.8 pg (27.0-33.0); MEAN CORPUSCULAR HGB CONC 31.8 g/dl (32.0-36.5); MEAN CORPUSCULAR VOLUME 84.1 fl (80.0-96.0); PLATELET COUNT, AUTOMATED 263 10^3/uL (150-450); RED BLOOD COUNT 4.71 10^6/uL (4.30-6.10); WHITE BLOOD COUNT 8.9 10^3/uL (4.0-10.0)
[2021-09-12 20:22] LABS: AMPHETAMINES LEVEL URINE NEGATIVE (NEGATIVE); BARBITURATES URINE NEGATIVE (NEGATIVE); BENZODIAZEPINES URINE NEGATIVE (NEGATIVE); CANNABINOIDS URINE NEGATIVE (NEGATIVE); COCAINE METABOLITE URINE NEGATIVE (NEGATIVE); METHADONE URINE NEGATIVE (NEGATIVE); OPIATES URINE NEGATIVE (NEGATIVE); PHENCYCLIDINE URINE NEGATIVE (NEGATIVE)
[2021-09-12 20:50] LABS: ACETAMINOPHEN LEVEL < 2.0 UG/ML (10.0-30.0); ALT/SGPT 76 U/L (12-78); BILIRUBIN,DIRECT 0.2 MG/DL (0.0-0.2); BILIRUBIN,TOTAL 0.7 MG/DL (0.2-1.0); BLOOD UREA NITROGEN 23 MG/DL (7-18); CALCIUM LEVEL 8.9 MG/DL (8.5-10.1); CARBON DIOXIDE LEVEL 26 MEQ/L (21-32); CHLORIDE LEVEL 110 MEQ/L (98-107); CREATININE FOR GFR 1.86 MG/DL (0.70-1.30); ETHYL ALCOHOL (ETHANOL) < 0.003 % (0.000-0.010); GLOMERULAR FILTRATION RATE 49.7 (>56); GLUCOSE, FASTING 234 MG/DL (70-100); NT-PRO BNP 2726 PG/ML (<125); POTASSIUM SERUM 4.3 MEQ/L (3.5-5.1); SALICYLATE LEVEL < 1.7 MG/DL (5.0-30.0); SODIUM LEVEL 142 MEQ/L (136-145); THYROID STIMULATING HORMONE 0.079 uIU/ML (0.358-3.740); TOTAL PROTEIN 6.5 GM/DL (6.4-8.2)
[2021-09-12] MEDS ORDERED: HumaLOG INSULIN (NovoLOG) PER UNIT SC SCH (21:00)
[2021-09-12] MEDS ORDERED: DEXTROSE 50% 50 ML SYRINGE IV PRN (22:30)
[2021-09-12] MEDS ORDERED: GLUCAGON INJ 1MG VIAL SC PRN (22:30)
[2021-09-12] MEDS ORDERED: ACETAMINOPHEN TAB 650MG DOSE (2X325MG) PO PRN (22:30)
[2021-09-12] MEDS ORDERED: GLUCOSE 4GM CHEW TABLET PO PRN (22:30)
[2021-09-12] MEDS: IPRATROPIUM 0.5MG/ALBUTEROL 2.5MG INH SOL UD 3ML (DUONEB) NEB PRN (23:25)
[2021-09-12] MEDS ORDERED: LEVALBUTEROL 1.25 MG/0.5 ML CONCENTRATE NEB INH PRN (23:30)
[2021-09-12] MEDS ORDERED: IPRATROPIUM 0.02% SOLN 0.5MG 2.5ML NEB INH PRN (23:30)
[2021-09-12] MEDS ORDERED: ALBU8.5H INH (23:39)
[2021-09-12] MEDS ORDERED: INSUH10VL SC (23:39)
[2021-09-12] MEDS ORDERED: AQUA10CR TOP (23:39)
[2021-09-12] MEDS ORDERED: FLUO100P5 TEETH (23:39)
[2021-09-12] MEDS ORDERED: DEXT4TAB15 PO (23:39)
[2021-09-12] MEDS ORDERED: VITMTA PO (23:39)
[2021-09-12] MEDS ORDERED: PATIENT COMMENT (23:39)
[2021-09-12] MEDS ORDERED: ERGO500029 PO (23:39)
[2021-09-12] MEDS ORDERED: CIAL5TAB PO (23:39)
[2021-09-12] MEDS ORDERED: OZEM2INJ SC (23:39)
[2021-09-12] MEDS ORDERED: SPIR12.9 INH (23:39)
[2021-09-12] MEDS ORDERED: [UNRECOGNIZED DRUG - CODE] TOP (23:39)
[2021-09-12] MEDS ORDERED: HOME MED LIST COMPLETE! XX SCH (23:40)
[2021-09-13 02:10] VITALS: BP 129/80
[2021-09-13] MEDS ORDERED: FUROSEMIDE 20MG/2ML VIAL (J1940) IV ONE (05:00)
[2021-09-13 05:10] VITALS: BP 124/92
[2021-09-13 06:18] LABS: BASO # 0.1 10^3/uL (0.0-0.2); BASO % 1.2 % (0.0-1.0); EOS # 0.6 10^3/uL (0.0-0.5); EOS % 7.9 % (0.0-3.0); HEMOGLOBIN 12.3 g/dl (13.5-17.5); LYMPH % 52.4 % (24.0-44.0); MEAN CORPUSCULAR HEMOGLOBIN 26.4 pg (27.0-33.0); MEAN CORPUSCULAR HGB CONC 31.5 g/dl (32.0-36.5); MEAN CORPUSCULAR VOLUME 83.7 fl (80.0-96.0); MONO # 0.4 10^3/uL (0.0-0.8); MONO % 5.8 % (2.0-8.0); NEUTROPHILS # 2.5 10^3/uL (1.5-8.5); NEUTROPHILS % 32.6 % (36.0-66.0); PLATELET COUNT, AUTOMATED 245 10^3/uL (150-450); RED BLOOD COUNT 4.66 10^6/uL (4.30-6.10); WHITE BLOOD COUNT 7.6 10^3/uL (4.0-10.0)
[2021-09-13 06:41] LABS: CALCIUM LEVEL 9.1 MG/DL (8.5-10.1); CK-MB VALUE MASS 5.2 NG/ML (<3.6); CREATININE FOR GFR 1.8 MG/DL (0.70-1.30); FREE T4 1.33 NG/DL (0.76-1.46); GLOMERULAR FILTRATION RATE 51.6 (>56); MAGNESIUM LEVEL 1.6 MG/DL (1.8-2.4); MB/CK RELATIVE INDEX 1.48 (< OR =4); POTASSIUM SERUM 3.8 MEQ/L (3.5-5.1)
[2021-09-13] MEDS: SYMBICORT 80/4.5MCG INHALER 6GM INH SCH ×2 (07:12→19:14)
[2021-09-13 07:46] VITALS: BP 133/98
[2021-09-13] MEDS: HumaLOG INSULIN (NovoLOG) PER UNIT SC SCH ×3 (08:04→17:41)
[2021-09-13] MEDS ORDERED: MULTIVITAMINS/MINERALS THERAP 1 TAB PO SCH (09:00)
[2021-09-13] MEDS ORDERED: AZITHROMYCIN 250MG TABLET PO SCH (09:00)
[2021-09-13] MEDS ORDERED: OMEGA-3 1000MG CAPSULE PO SCH (09:00)
[2021-09-13 10:29] LABS: HEMOGLOBIN A1c 8.6 %
[2021-09-13] MEDS ORDERED: MAGNESIUM OXIDE 400MG TAB (MAG-OX) PO ONE (15:15)
[2021-09-13 16:04] VITALS: BP 140/108
[2021-09-13] MEDS: IPRATROPIUM 0.5MG/ALBUTEROL 2.5MG INH SOL UD 3ML (DUONEB) NEB PRN (19:14)
== END 2021-09-13 19:34 | disposition home or self-care (01) ==
LOC: M ED 16:20 → M ED INP 16:21 → M PCU 09-13 02:15
PROVIDERS: ADMIT Family Medicine; ATTEND Family Medicine
DX: R06.02 Shortness of breath (principal); R79.89 Other specified abnormal findings of blood chemistry; R45.851 Suicidal ideations; R00.0 Tachycardia, unspecified; I11.9 Hypertensive heart disease without heart failure; R60.0 Localized edema; F20.9 Schizophrenia, unspecified; Z86.79 Personal history of other diseases of the circulatory system; F32.A Depression, unspecified; F41.9 Anxiety disorder, unspecified; F19.99 Other psychoactive substance use, unspecified with unspecified psychoactive substance-induced disorder; F60.2 Antisocial personality disorder; F31.9 Bipolar disorder, unspecified; N17.9 Acute kidney failure, unspecified; J44.9 Chronic obstructive pulmonary disease, unspecified; E11.21 Type 2 diabetes mellitus with diabetic nephropathy; N18.9 Chronic kidney disease, unspecified; E78.5 Hyperlipidemia, unspecified; R06.01 Orthopnea; R05.9 Cough, unspecified; F17.210 Nicotine dependence, cigarettes, uncomplicated; F10.11 Alcohol abuse, in remission; Z88.8 Allergy status to other drugs, medicaments and biological substances; Z79.899 Other long term (current) drug therapy; Z79.4 Long term (current) use of insulin; Z79.84 Long term (current) use of oral hypoglycemic drugs
CPT/HCPCS: 36415; 71046; 80048; 80076; 80143; 80307; 82077; 82550; 82553; 83036; 83735; 83880; 84145; 84439; 84443; 84484; 85025; 85027; 87798; 93005; 93306; 96374; 99285; G0378; J1815; J1940

== ENCOUNTER 2021-09-22 09:21 | Inpatient (IN) | payer OTHER ==
[~2021-09-22] VITALS: Ht 182.9 cm; Wt 115.0 kg
[~2021-09-22 09:21] MED LIST changes: +ALBU8.5H INH; +AQUA10CR TOP; +CIAL5TAB PO; +DEXT4TAB15 PO; +ERGO500029 PO; +FLUO100P5 TEETH; +INSUH10VL SC; +OZEM2INJ SC; +PATIENT COMMENT; +SPIR12.9; +SPIR12.9 INH; +TIOTROPIUM INHALER/CAPSULE (SPIRIVA) INH SCH; +VITMTA PO; +[UNRECOGNIZED DRUG - CODE] TOP
[2021-09-22] MEDS ORDERED: FUROSEMIDE 40MG/4ML VIAL (J1940) IV ONE (09:45)
[2021-09-22 10:06] LABS: BASO # 0.1 10^3/uL (0.0-0.2); BASO % 1.1 % (0.0-1.0); EOS # 0.3 10^3/uL (0.0-0.5); EOS % 4.2 % (0.0-3.0); HEMATOCRIT 39.3 % (42.0-52.0); HEMOGLOBIN 12.3 g/dl (13.5-17.5); LYMPH # 4.5 10^3/uL (1.5-5.0); LYMPH % 54.6 % (24.0-44.0); MEAN CORPUSCULAR HEMOGLOBIN 26.7 pg (27.0-33.0); MEAN CORPUSCULAR HGB CONC 31.3 g/dl (32.0-36.5); MEAN CORPUSCULAR VOLUME 85.4 fl (80.0-96.0); MONO # 0.5 10^3/uL (0.0-0.8); MONO % 5.7 % (2.0-8.0); NEUTROPHILS # 2.8 10^3/uL (1.5-8.5); PLATELET COUNT, AUTOMATED 278 10^3/uL (150-450); WHITE BLOOD COUNT 8.2 10^3/uL (4.0-10.0)
[2021-09-22 10:10] LABS: INR 1.18; PARTIAL THROMBOPLASTIN TIME 32.6 SECONDS (25.9-37.0); PROTHROMBIN TIME 15.4 SECONDS (12.7-14.5)
[2021-09-22 10:26] LABS: CALCIUM LEVEL 8.9 MG/DL (8.5-10.1); CREATININE FOR GFR 1.7 MG/DL (0.70-1.30); GLOMERULAR FILTRATION RATE 55.1 (>56)
[2021-09-22] MEDS ORDERED: GLUCAGON INJ 1MG VIAL SC PRN (11:25)
[2021-09-22] MEDS ORDERED: LEVALBUTEROL HFA 45MCG/ACT 15 GM INHALER INH PRN (11:25)
[2021-09-22] MEDS ORDERED: GLUCOSE 4GM CHEW TABLET PO PRN (11:25)
[2021-09-22] MEDS ORDERED: DEXTROSE 50% 50 ML SYRINGE IV PRN (11:25)
[2021-09-22] MEDS ORDERED: INSUHUMDS SC (11:37)
[2021-09-22] MEDS ORDERED: HOME MED LIST COMPLETE! XX SCH (11:40)
[2021-09-22] MEDS: HumaLOG INSULIN (NovoLOG) PER UNIT SC SCH ×2 (12:00→17:58)
[2021-09-22] MEDS ORDERED: METOPROLOL TART 25 MG TABLET PO ONE ×2 (13:00→16:10)
[2021-09-22 13:44] VITALS: BP 152/83
[2021-09-22] MEDS ORDERED: HEPARIN SOD (PORCINE) 5000UNITS/ML 1ML VIAL/SYRINGE SC SCH (14:00)
[2021-09-22] MEDS: LEVALBUTEROL 1.25 MG/0.5 ML CONCENTRATE NEB INH SCH ×2 (14:00→20:40)
[2021-09-22] MEDS: IPRATROPIUM 0.02% SOLN 0.5MG 2.5ML NEB INH SCH ×2 (14:00→20:40)
[2021-09-22 16:47] VITALS: BP 132/76
[2021-09-22] MEDS ORDERED: guaiFENesin DM LIQ 10ML UD PO ONE (17:05)
[2021-09-22] MEDS ORDERED: ONDANSETRON 4 MG TAB PO ONE (17:30)
[2021-09-22] MEDS: BENZONATATE 100MG CAPSULE PO PRN (17:32)
[2021-09-22] MEDS ORDERED: FUROSEMIDE 40MG/4ML VIAL (J1940) IV SCH (18:00)
[2021-09-22] MEDS: METOPROLOL TART 25 MG TABLET PO SCH ×2 (18:11→23:19)
[2021-09-22] MEDS: FUROSEMIDE 40MG/4ML VIAL (J1940) IV SCH (19:04)
[2021-09-22 20:00] VITALS: BP 126/87
[2021-09-22] MEDS ORDERED: LEVEMIR (INSULIN DETEMIR) 1 UNITS/0.01ML SC SCH (21:00)
[2021-09-22] MEDS ORDERED: HumaLOG INSULIN (NovoLOG) PER UNIT SC SCH (21:00)
[2021-09-22] MEDS: APIXABAN 5 MG TAB (ELIQUIS) PO SCH (21:13)
[2021-09-22] MEDS ORDERED: MOM 30ML SUSPENSION UDC PO PRN (21:25)
[2021-09-22] MEDS ORDERED: DOCUSATE SODIUM 100MG CAPSULE PO PRN (21:25)
[2021-09-22] MEDS ORDERED: METOPROLOL TART 25 MG TABLET PO SCH (22:00)
[2021-09-22] MEDS ORDERED: hydrOXYzine 25 MG TAB PO ONE (22:00)
[2021-09-23] MEDS: LEVALBUTEROL 1.25 MG/0.5 ML CONCENTRATE NEB INH SCH ×2 (01:59→07:26)
[2021-09-23] MEDS: IPRATROPIUM 0.02% SOLN 0.5MG 2.5ML NEB INH SCH ×4 (01:59→15:20)
[2021-09-23] MEDS: METOPROLOL TART 25 MG TABLET PO SCH (05:28)
[2021-09-23] MEDS: FUROSEMIDE 40MG/4ML VIAL (J1940) IV SCH (05:31)
[2021-09-23] MEDS: BENZONATATE 100MG CAPSULE PO PRN (05:36)
[2021-09-23 07:15] VITALS: BP 119/86
[2021-09-23] MEDS ORDERED: METOPROLOL TART 25 MG TABLET PO ONE (07:40)
[2021-09-23] MEDS: APIXABAN 5 MG TAB (ELIQUIS) PO SCH (07:57)
[2021-09-23] MEDS: HumaLOG INSULIN (NovoLOG) PER UNIT SC SCH ×3 (07:58→17:12)
[2021-09-23 08:57] LABS: HEMATOCRIT 42.1 % (42.0-52.0); HEMOGLOBIN 13.4 g/dl (13.5-17.5); MEAN CORPUSCULAR HEMOGLOBIN 26.7 pg (27.0-33.0); MEAN CORPUSCULAR HGB CONC 31.8 g/dl (32.0-36.5); PLATELET COUNT, AUTOMATED 299 10^3/uL (150-450); RED BLOOD COUNT 5.01 10^6/uL (4.30-6.10); WHITE BLOOD COUNT 8.8 10^3/uL (4.0-10.0)
[2021-09-23] MEDS ORDERED: SENOKOT S TAB PO SCH (09:00)
[2021-09-23] MEDS ORDERED: predniSONE 20 MG TAB PO SCH (09:00)
[2021-09-23 09:20] VITALS: BP 132/90
[2021-09-23 09:20] LABS: CALCIUM LEVEL 8.4 MG/DL (8.5-10.1); CREATININE FOR GFR 2.23 MG/DL (0.70-1.30); GLOMERULAR FILTRATION RATE 40.3 (>56); MAGNESIUM LEVEL 1.8 MG/DL (1.8-2.4); PHOSPHORUS LEVEL 5.3 MG/DL (2.5-4.9); POTASSIUM SERUM 4.6 MEQ/L (3.5-5.1)
[2021-09-23 09:35] VITALS: BP 122/85
[2021-09-23] MEDS ORDERED: METOPROLOL TART 50 MG TAB PO ONE (09:40)
[2021-09-23 12:00] VITALS: BP 102/56
[2021-09-23] MEDS ORDERED: METOPROLOL TART 50 MG TAB PO SCH (12:00)
[2021-09-23] MEDS ORDERED: DIGOXIN INJ 0.5 MG/2 ML AMP (J1160) IV SCH ×2 (14:00→17:00)
[2021-09-23 17:03] VITALS: BP 135/92
[2021-09-23] MEDS ORDERED: PRED10TA2 PO (17:15)
[2021-09-23] MEDS ORDERED: SPIR12.9 INH (17:15)
[2021-09-23] MEDS ORDERED: METOPROLOL TART 25 MG TABLET PO SCH (18:00)
[2021-09-23] MEDS ORDERED: FUROSEMIDE 40MG/4ML VIAL (J1940) IV SCH (18:00)
[2021-09-24] MEDS ORDERED: FUROSEMIDE 40MG/4ML VIAL (J1940) IV SCH (09:00)
== END 2021-09-23 17:57 | disposition short-term general hospital (02) | DRG 291 ==
LOC: M ED 09:21 → EDBD 09:21 → M ED INP 11:18 → ENRESERV 12:10 → M PCU 13:44
PROVIDERS: ADMIT Internal Medicine; ATTEND Internal Medicine
DX: I13.0 Hypertensive heart and chronic kidney disease with heart failure and stage 1 through stage 4 chronic kidney disease, or unspecified chronic kidney disease (principal); I50.23 Acute on chronic systolic (congestive) heart failure; I48.92 Unspecified atrial flutter; E11.22 Type 2 diabetes mellitus with diabetic chronic kidney disease; N18.9 Chronic kidney disease, unspecified; J44.9 Chronic obstructive pulmonary disease, unspecified; F17.200 Nicotine dependence, unspecified, uncomplicated; R07.89 Other chest pain; F20.9 Schizophrenia, unspecified; D64.9 Anemia, unspecified; I34.0 Nonrheumatic mitral (valve) insufficiency; I27.20 Pulmonary hypertension, unspecified; Z79.4 Long term (current) use of insulin; Z88.8 Allergy status to other drugs, medicaments and biological substances